=== PATIENT | male | born 1965 | race Native Hawaiian/Other Pacific Islander ===

== ENCOUNTER 2017-03-04 07:39 | Day surgery (SDC) | payer BC ==
[~2017-03-04 07:39] MED LIST: AMIT25TA22 PO; DICL75TA4 PO; GABA300C2 PO; HYDR25TA60 PO; ISOS60TA6 PO; LOTENSIN HCT1 TA2 PO; PRAV40TA PO
[2017-03-04 08:55] LABS: PLATELET COUNT 290 K/uL (142-355)
[2017-03-04 09:07] LABS: PARTIAL THROMBOPLASTIN TIME 23.1 SECONDS (24.5-33.6)
[2017-03-04 09:17] LABS: POTASSIUM 4.2 mmol/L (3.6-5.2); SODIUM 139 mmol/L (136-145)
== END 2017-03-04 11:57 | disposition home or self-care (01) ==
LOC: OR 07:39
PROVIDERS: Student in an Organized Health Care Education/Training Program
PROC: 0DJD8ZZ Inspection of Lower Intestinal Tract, Via Natural or Artificial Opening Endoscopic (ICD-10-PCS; principal; 2017-03-04)
DX: K64.8 Other hemorrhoids (principal); Z12.11 Encounter for screening for malignant neoplasm of colon
CPT/HCPCS: 80053; 85027; 85610; 85730; J2001; J2250; J2704; J3010

== ENCOUNTER 2020-06-02 11:36 | Outpatient (CLI) | payer OTHER | END 2020-06-02 21:39 | disposition home or self-care (01) | LOC: RAD 11:36 | PROVIDERS: ATTEND Nurse Practitioner | DX: M54.16 Radiculopathy, lumbar region (principal) ==

== ENCOUNTER 2021-05-29 12:41 | Emergency (ER) | payer OTHER ==
[~2021-05-29] VITALS: Ht 188 cm; Wt 156.5 kg
[2021-05-29 13:55] VITALS: BP 136/79; TEMP 98.2
== END 2021-05-29 13:55 | disposition home or self-care (01) ==
LOC: ED 12:41
DX: M54.59 Other low back pain (principal); G89.29 Other chronic pain; M54.16 Radiculopathy, lumbar region
CPT/HCPCS: 96372; 99283; J1885; J2930

== ENCOUNTER 2022-10-28 08:26 | Outpatient (CLI) | payer OTHER | END 2022-10-28 19:04 | disposition home or self-care (01) | LOC: CT 08:26 | PROVIDERS: ATTEND Registered Nurse | DX: M54.59 Other low back pain (principal); R53.83 Other fatigue; E11.9 Type 2 diabetes mellitus without complications; R10.32 Left lower quadrant pain | CPT/HCPCS: 36415; 82565; 84520; Q9963 ==